=== PATIENT | male | born 1990 | race American Indian/Alaskan Native ===

== ENCOUNTER 2017-01-29 00:08 | Emergency (ER) | payer OTHER ==
[2017-01-29] MEDS ORDERED: MOTRIN PO ONE (04:49)
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
[2017-01-29 06:27] VITALS: BP 157/91
== END 2017-01-29 06:28 | disposition home or self-care (01) ==
LOC: ED 00:08
DX: S39.012A Strain of muscle, fascia and tendon of lower back, initial encounter (principal); S13.4XXA Sprain of ligaments of cervical spine, initial encounter; I10 Essential (primary) hypertension; V89.2XXA Person injured in unspecified motor-vehicle accident, traffic, initial encounter; Y93.89 Activity, other specified; Y99.8 Other external cause status; Y92.89 Other specified places as the place of occurrence of the external cause
CPT/HCPCS: 99282

== ENCOUNTER 2017-06-06 11:55 | Emergency (ER) | payer SELFPAY ==
[2017-06-06] MEDS ORDERED: XYLOCAINE 1% MPF 5 mL INFILTRATI ONE (15:45)
[2017-06-06] MEDS ORDERED: ROCEPHIN IM ONE (15:45)
--- NOTE | 2017-06-06 15:46 | Emergency Department Report ---
ED General Adult HPI - General Chief complaint: Urogenital-Male Stated complaint: PAINFUL TO URINATE Time Seen by Provider: 06/06/17 15:40 Source: patient Mode of arrival: Ambulatory Limitations: No Limitations - History of Present Illness Initial comments: PT c/o pain after urination x 1 week. PT states he is also having intermittent clear to white penile discharge. Pt reports that his urine has also been darker than normal. pt states he knows he does not drink enough water. PT states he has had recent unprotected sex. MD Complaint: dysuria/ discharge -: Gradual, week(s) (1) Location: genitals Severity scale (0 -10): 8 Quality: burning Consistency: intermittent Worsens with: other (after urination ) Associated Symptoms: denies: fever/chills, malaise, nausea/vomiting Treatments Prior to Arrival: none - Related Data Previous Rx's Medication Instructions Recorded Last Taken Type Doxycycline [Vibramycin CAP] 100 mg PO Q12HR #14 capsule 06/06/17 Unknown Rx Allergies Allergy/AdvReac Type Severity Reaction Status Date / Time No Known Allergies Allergy Unverified 01/29/17 01:04 ED Review of Systems ROS: Stated complaint: PAINFUL TO URINATE Other details as noted in HPI Comment: All other systems reviewed and negative Constitutional: denies: fever, malaise Gastrointestinal: denies: abdominal pain, nausea, vomiting Genitourinary: as per HPI Musculoskeletal: back pain (chronic, herniated disc ) ED Past Medical Hx - Past Medical History Previous Medical History?: No Hx Hypertension: Yes - Surgical History Additional Surgical History: Both shoulders arthroscopic surgery, right shoulder dislocation. - Social History Smoking Status: Never Smoker Substance Use Type: None - Medications Home Medications: Home Medications Medication Instructions Recorded Confirmed Last Taken Type Doxycycline [Vibramycin CAP] 100 mg PO Q12HR #14 capsule 06/06/17 Unknown Rx ED Physical Exam - General Limitations: No Limitations General appearance: alert, in no apparent distress - Head Head exam: Present: atraumatic, normocephalic, normal inspection - Eye Eye exam: Present: normal appearance, PERRL, EOMI. Absent: conjunctival injection - ENT ENT exam: Present: normal exam, mucous membranes moist, normal external ear exam - Neck Neck exam: Present: normal inspection, tenderness, full ROM. Absent: lymphadenopathy - Respiratory Respiratory exam: Present: normal lung sounds bilaterally. Absent: respiratory distress, chest wall tenderness - Cardiovascular Cardiovascular Exam: Present: regular rate, normal rhythm, normal heart sounds - GI/Abdominal GI/Abdominal exam: Present: soft. Absent: tenderness - Extremities Exam Extremities exam: Present: normal inspection, full ROM - Back Exam Back exam: Present: normal inspection, full ROM. Absent: tenderness, CVA tenderness (R), CVA tenderness (L), muscle spasm, paraspinal tenderness, vertebral tenderness - Neurological Exam Neurological exam: Present: alert, oriented X3, normal gait - Psychiatric Psychiatric exam: Present: normal affect, normal mood - Skin Skin exam: Present: warm, dry, intact ED Course Vital Signs 06/06/17 06/06/17 13:24 17:33 Temperature 97.9 F 97.7 F Pulse Rate 74 77 Respiratory 18 14 Rate Blood Pressure 154/97 Blood Pressure 151/85 [Left] O2 Sat by Pulse 99 Oximetry - Reevaluation(s) Reevaluation #1: 06/06/17 15:45 PT aware of plan of care. Reevaluation #2: 06/06/17 17:13 PT aware of available lab results. IM Rocephin while pt in the ED. PT aware he will put on doxy for 7 days. PT has no questions at this time. - Pulse Oximetry Interpretation Digit-Finger Initial Pulse Oximetry Readin Actions Taken: none ED Medical Decision Making - Lab Data Laboratory Results - last 24 hr 06/06/17 16:13 Urine Color Yellow Urine Turbidity Clear Urine pH 5.0 Ur Specific [place] 1.018 Urine Protein <15 mg/dl Urine Glucose (UA) Neg Urine Ketones Neg Urine Blood Neg Urine Nitrite Neg Urine Bilirubin Neg Urine Urobilinogen < 2.0 Ur Leukocyte Esterase Mod Urine WBC (Auto) 32.0 H Urine RBC (Auto) 5.0 Urine Mucus Few - Differential Diagnosis std, uti, htn Critical Care Time: No Critical care attestation.: If time is entered above; I have spent that time in minutes in the direct care of this critically ill patient, excluding procedure time. ED Disposition Clinical Impression: Urethritis Disposition: DC-01 TO HOME OR SELFCARE Is pt being admited?: No Does the pt Need Aspirin: No Condition: Stable Instructions: Sexually Transmitted Diseases (ED), Safe Sex (ED), Nonspecific Urethritis in Men (ED) Additional Instructions: Have your BP recheck at follow up No sex x 7 days Use a barrier method to prevent STDs Take all antibiotics Cultures should be resulted in 3-5 days, follow up with medical records to obtain a copy of your results IF your cultures are positive, your partners will need testing/ treatment Prescriptions: Doxycycline [Vibramycin CAP] 100 mg PO Q12HR #14 capsule Referrals: PRIMARY CARE, [Primary Care Provider] - 3-5 Days VIANCA VILLALPANDO MD [Staff Physician] - 3-[address] [facility] [Outside] - 3-5 Days [facility] [Outside] - 3-5 Days Forms: STI Treatment and Prevention Time of Disposition: 17:15
[2017-06-06 16:56] LABS: Bilirubin,Urine NEG (Negative); Blood,Urine NEG (Negative); Ketones,Urine NEG (Negative); Leukocyte Esterase,Urine MOD (Negative); Mucus,Urine FEW /HPF; Nitrite,Urine NEG (Negative); Protein,Urine <15 mg/dL mg/dL (Negative); Urobilinogen,Urine < 2.0 mg/dL (<2.0)
[2017-06-06 17:35] VITALS: BP 151/85
== END 2017-06-06 17:34 | disposition home or self-care (01) ==
LOC: ED 11:55
DX: N34.2 Other urethritis (principal); I10 Essential (primary) hypertension
CPT/HCPCS: 81001; 87591; 96372; 99283; J0696

== ENCOUNTER 2022-06-20 01:07 | Emergency (ER) | payer SELFPAY ==
[2022-06-20] MEDS ORDERED: dexAMETHasone 20 MG/5 ML VIAL IM ONE (10:29)
[2022-06-20] MEDS ORDERED: KETOROLAC 30 MG/1 ML INJ IM ONE (10:29)
--- NOTE | 2022-06-20 10:34 | Emergency Department Report ---
ED General Adult HPI - General Chief complaint: Headache Stated complaint: HEAD PAIN Source: EMS Mode of arrival: Stretcher Limitations: No Limitations - History of Present Illness Initial comments: 31 y/o male present to ED complain complaining of headache x1 day. He states that he has a headache is a 10 out of 10. Patient was resting with his eyes closed when entering the room. 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 Patient denies any nausea or vomiting at present time. Denies any blurry vision at present time. Patient is alert and oriented x3. No acute distress noted. No ill appearance noted. - Related Data Previous Rx's Medication Instructions Recorded Last Taken Type DOXYCYCLINE Hyclate [Vibramycin 100 mg PO Q12HR #14 capsule 06/06/17 Unknown Rx CAP] Acetaminophen/Codeine [Tylenol 1 tab PO Q6H PRN 3 Days #12 tab 06/20/22 Unknown Rx /Codeine # 3 tab] Ketorolac [Toradol] 10 mg PO Q6H PRN 5 Days #20 tab 06/20/22 Unknown Rx Promethazine HCl [Promethazine TAB] 25 mg PO Q6H PRN 15 Days #30 tab 06/20/22 Unknown Rx Allergies Allergy/AdvReac Type Severity Reaction Status Date / Time No Known Allergies Allergy Unverified 01/29/17 01:04 ED Review of Systems ROS: Stated complaint: HEAD PAIN Other details as noted in HPI Constitutional: denies: chills, fever Eyes: denies: eye pain, eye discharge, vision change ENT: denies: ear pain, throat pain Respiratory: denies: cough, shortness of breath, wheezing Cardiovascular: denies: chest pain, palpitations Endocrine: no symptoms reported Gastrointestinal: denies: abdominal pain, nausea, diarrhea Genitourinary: denies: urgency, dysuria Musculoskeletal: denies: back pain, joint swelling, arthralgia Skin: denies: rash, lesions Neurological: headache. denies: weakness, paresthesias Psychiatric: denies: anxiety, depression Hematological/Lymphatic: denies: easy bleeding, easy bruising ED Past Medical Hx - Past Medical History Previous Medical History?: Yes Hx Hypertension: Yes Additional medical history: [facility] January 2022 - Surgical History Past Surgical History?: Yes Additional Surgical History: Both shoulders arthroscopic surgery, right shoulder dislocation. - Social History Smoking Status: Unknown if ever smoked Substance Use Type: None - Medications Home Medications: Home Medications Medication Instructions Recorded Confirmed Last Taken Type DOXYCYCLINE Hyclate [Vibramycin 100 mg PO Q12HR #14 capsule 06/06/17 Unknown Rx CAP] Acetaminophen/Codeine [Tylenol 1 tab PO Q6H PRN 3 Days #12 tab 06/20/22 Unknown Rx /Codeine # 3 tab] Ketorolac [Toradol] 10 mg PO Q6H PRN 5 Days #20 tab 06/20/22 Unknown Rx Promethazine HCl [Promethazine TAB] 25 mg PO Q6H PRN 15 Days #30 tab 06/20/22 Unknown Rx ED Physical Exam - General Limitations: No Limitations General appearance: alert, in no apparent distress - Head Head exam: Present: atraumatic, normocephalic - Eye Eye exam: Present: normal appearance - ENT ENT exam: Present: mucous membranes moist - Neck Neck exam: Present: normal inspection - Respiratory Respiratory exam: Present: normal lung sounds bilaterally. Absent: respiratory distress - Cardiovascular Cardiovascular Exam: Present: regular rate, normal rhythm. Absent: systolic murmur, diastolic murmur, rubs, gallop - GI/Abdominal GI/Abdominal exam: Present: soft, normal bowel sounds - Rectal Rectal exam: Present: deferred - Extremities Exam Extremities exam: Present: normal inspection - Back Exam Back exam: Present: normal inspection - Neurological Exam Neurological exam: Present: alert, oriented X3 - Psychiatric Psychiatric exam: Present: normal affect, normal mood - Skin Skin exam: Present: warm, dry, intact, normal color. Absent: rash ED Course Vital Signs 06/20/22 01:08 Temperature 98.7 F Pulse Rate 96 H Respiratory 18 Rate Blood Pressure 160/108 O2 Sat by Pulse 96 Oximetry ED Medical Decision Making - Medical Decision Making 31 y/o male present to ED complain complaining of headache x1 day. He states that he has a headache is a 10 out of 10. Patient was resting with his eyes closed when entering the room. 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 Patient denies any nausea or vomiting at present time. Denies any blurry vision at present time. Patient is alert and oriented x3. No acute distress noted. No ill appearance noted. Physical examination is unremarkable. Rechecked the patient is resting quietly , comfortable and feeling better. I discussed the results of diagnostic study, my clinical impression and the plan for further treatment with the patient. Patient agrees with plan and discharge at this present time. All question addressed. I have given the patient instruction regarding a diagnosis ,expectation ,follow- up and return precaution. I explained to the patient that emergent condition may arise and to return to the ED for new worsen and any new persisting condition. I have explained the importance of following up with the primary care physician or referral physician listed below has instructed. The patient verbalized understanding of discharge instruction. Critical care attestation.: If time is entered above; I have spent that time in minutes in the direct care of this critically ill patient, excluding procedure time. ED Disposition Clinical Impression: Headache Qualifiers: Headache type: unspecified Headache chronicity pattern: acute headache Intractability: not intractable Qualified Code(s): R51.9 - Headache, unspecified Disposition: 01 HOME / SELF CARE / HOMELESS Is pt being admited?: No Does the pt Need Aspirin: No Condition: Stable Instructions: Migraine Headache, [id number] Additional Instructions: Take medication as prescribed Return to ED for any worsening symptom Follow-up with your neurology of your choice Prescriptions: Promethazine HCl [Promethazine TAB] 25 mg PO Q6H PRN 15 Days #30 tab PRN Reason: Nausea Ketorolac [Toradol] 10 mg PO Q6H PRN 5 Days #20 tab PRN Reason: Pain Acetaminophen/Codeine [Tylenol /Codeine # 3 tab] 1 tab PO Q6H PRN 3 Days #12 tab PRN Reason: Nausea Referrals: [facility] [Provider Group] - 3-5 Days Forms: Work/School Release Form(ED) Time of Disposition: 10:41
[2022-06-20 11:24] VITALS: BP 152/104
== END 2022-06-20 11:22 | disposition home or self-care (01) ==
LOC: ED 01:07
DX: R51.9 Headache, unspecified (principal); I10 Essential (primary) hypertension
CPT/HCPCS: 96372; 99283; J1100; J1885